=== PATIENT | female | born 1985 | race Caucasian/White ===

== ENCOUNTER 2017-03-17 00:20 | Observation (INO) | payer SELFPAY ==
[2017-03-17 00:20] VITALS: BMI 32.3
--- NOTE | 2017-03-17 00:41 | ED PDOC ---
Arrival/HPI - General Time Seen by Provider: 03/17/17 00:36 Historian: Patient - History of Present Illness Narrative History of Present Illness (Text): 03/17/17 00:41 Radhames Mcguire is a 31 year old female, whose past medical history includes chronic pain, anxiety, and left shoulder surgery, who presents to the Emergency department status post fall yesterday. Patient states she fell yesterday on to a nail and is now complaining of pain to her left upper arm/shoulder area. Patient also complaining of discomfort to left mandibular/periorbital area and headache. Patient is uncertain if she hit her face/head after falling. Patient appears extremely drowsy with slow mentation when questioned. Patient admits to taking Percocet earlier tonight for her chronic back pain. Patient denies loss of consciousness after she fell yesterday. Patient denies any chest pain, back pain, neck pain, dizziness, nausea, vomiting, or any other complaints. Symptom Onset: Gradual Symptom Course: Unchanged Activities at Onset: Light Context: Walking Past Medical History - Provider Review Nursing Documentation Reviewed: Yes - Infectious Disease Hx of Infectious Diseases: None - Cardiac Hx Pacemaker: No - Pulmonary Hx Emphysema: No - Neurological Hx Dementia: No - HEENT Hx HEENT Disorder: No Hx Blind: No Hx Cataracts: No Hx Deafness: No Hx Difficulty Chewing: No Hx Epistaxis: No Hx Glaucoma: No Hx Macular Degeneration: No - Renal Hx Renal Disorder: No - Endocrine/Metabolic Hx Hyperthyroidism: No Hx Hypothyroidism: No - Hematological/Oncological Hx Sickle Cell Disease: No - Integumentary Hx Dermatological Disorder: No Hx Basal Cell Carcinoma: No Hx Eczema: No Hx Melanoma: No Hx Psoriasis: No Hx Squamous Cell Carcinoma: No - Musculoskeletal/Rheumatological Hx Musculoskeletal Disorders: Yes Hx Back Pain: No Hx Degenerative Joint Disease: No Hx Falls: No Hx Gout: No Hx Herniated Disk: No Hx Myasthenia Gravis: No Hx Osteoarthritis: No Hx Osteomyelitis: No Hx Rhabdomyolysis: No Hx Spinal Stenosis: Yes Hx Unsteady Gait: No - Gastrointestinal Hx Diverticulitis: No - Genitourinary/Gynecological Hx Sexually Transmitted Diseases: No - Psychiatric Hx Substance Use: No - Surgical History Hx Appendectomy: No Hx Cholecystectomy: No Hx Coronary Stent: No - Anesthesia Hx Anesthesia: Yes Hx Anesthesia Reactions: No - Suicidal Assessment Feels Threatened In Home Enviroment: No Family/Social History - Physician Review Nursing Documentation Reviewed: Yes Family/Social History: Unknown Family HX Smoking Status: Never Smoked Hx Alcohol Use: No Hx Substance Use: No Allergies/Home Meds Allergies/Adverse Reactions: Allergies No Known Allergies Allergy (Verified 03/26/16 12:18) Home Medications: Home Meds Medication Instructions Recorded Confirmed Alprazolam [Xanax] 2 mg PO TID 07/04/15 07/04/15 oxyCODONE [oxyCODONE Immediate 15 mg PO TID 07/04/15 07/04/15 Release Tab] oxyCODONE [oxyCODONE Immediate 30 mg PO TID 07/04/15 07/04/15 Release Tab] Review of Systems - Physician Review All systems were reviewed & negative as marked: Yes - Review of Systems Constitutional: Normal Eyes: Normal ENT: Normal Respiratory: Normal. absent: SOB, Cough Cardiovascular: absent: Chest Pain Gastrointestinal: Normal. absent: Abdominal Pain, Diarrhea, Nausea, Vomiting Genitourinary Female: Normal Musculoskeletal: Arthralgias (+left shoulder pain), Other (+facial pain). absent: Back Pain, Neck Pain Skin: Other (+left upper arm wound) Neurological: Headache Endocrine: Normal Hemo/Lymphatic: Normal Psychiatric: Normal Physical Exam Vital Signs Reviewed: Yes Vital Signs Temp Pulse Resp BP Pulse Ox 03/17/17 00:58 97.7 F 89 18 149/64 98 Temperature: Afebrile Blood Pressure: Normal Pulse: Regular Respiratory Rate: Normal Appearance: Positive for: Comfortable Pain Distress: None Mental Status: Positive for: other (Awake, drowsy, oriented x3) - Systems Exam Head: Present: Normocephalic, Tenderness (Tenderness to left lower maxilla/ mandible, swelling to the area noted), Swelling (Right periorbital edema with erythema and palpable tenderness to the area, swelling to lower left periorbital area) Pupils: Present: PERRL Extroacular Muscles: Present: EOMI Conjunctiva: Present: Normal Mouth: Present: Moist Mucous Membranes Neck: Present: Normal Range of Motion Respiratory/Chest: Present: Clear to Auscultation, Good Air Exchange. No: Respiratory Distress, Accessory Muscle Use Cardiovascular: Present: Regular Rate and Rhythm, Normal S1, S2. No: Murmurs Abdomen: Present: Normal Bowel Sounds. No: Tenderness, Distention, Peritoneal Signs Upper Extremity: Present: NORMAL PULSES, Tenderness (Tenderness on palpation of left shoulder/distal left clavicle), Erythema (Open wound abrasion/avulsion to left upper arm with surrounding erythema and swelling, no discharge noted), Neurovascularly Intact, Capillary Refill < 2s. No: Cyanosis, Edema, Normal ROM (Discomfort with left shoulder raising), Temperature Abnormalties Lower Extremity: Present: Normal Inspection. No: Edema Neurological: Present: GCS=15, CN II-XII Intact Skin: Present: Warm, Dry, Normal Color. No: Rashes Psychiatric: Present: Oriented x 3, Normal Insight, Normal Concentration, Other (Awake, drowsy) Medical Decision Making ED Course and Treatment: 03/17/17 00:41 Impression: 31 year old female complaining of left upper arm/shoulder pain, facial pain, and headache. Plan: -- CT Head w/o contrast -- CT Maxillofacial w/o contrast -- XR Left Shoulder -- EKG -- Labs, cardiac enzymes, alcohol level -- Urine drug screen -- Tetanus vaccination -- Reassess and disposition Prior Visits: Notes and results from previous visits were reviewed. On 03/26/2016, pt was seen at [facility] emergency department for chronic left arm/shoulder pain. Pt was d/c home. Progress Notes: 03/17/17 01:26 [place] SIGNALING PROJECT ENGINEER reviewed, pt received 90 tablets of Oxycodone-Acetaminophen 10-325 on , 90 tablets Oxycodone 30mg on 02/02/17, and 30 tablets of Aprazolam on 10/13. 03/17/17 02:00 EKG: Ordered, reviewed, and independently interpreted the EKG. Rate: 83 BPM Rhythm: NSR Interpretation: No ST-segment elevations or depressions, no T-wave inversions, normal intervals. 03/17/17 02:32 Reviewed XR Left Shoulder, shows widened left acromioclavicular joint, unchanged from previous XR Left Shoulder on 11/2014. 03/17/17 03:05 Reviewed radiology, CT Head shows: - No evidence of acute intracranial injury or fractures. - See above for remaining findings. CT Maxillofacial shows: - No acute facial bones fractures identified. - Incidental multiple periodontal abscesses. 03/17/17 03:09 Case discussed with family practice medical doctor optimization analyst, who is aware and agrees with plan. Case discussed with Dr. Nayak, who is aware and agrees with plan. Accepts pt in to hospitalist service. Pt will go to [facility] observation for rhabdomyolysis, cellulitis, and head/facial contusion. - Lab Interpretations Lab Results: 03/17/17 01:05 03/17/17 01:05 Lab Results 03/17/17 01:30: Urine Opiates Screen Pending, Urine Methadone Screen Pending, Ur Barbiturates Screen Pending, Ur Phencyclidine Scrn Pending, Ur Amphetamines Screen 171.4, U Benzodiazepines Scrn Pending, U Oth Cocaine Metabols Pending, U Cannabinoids Screen 45.42 03/17/17 01:05: Alcohol, Quantitative < 10 03/17/17 01:05: WBC 9.4 D, RBC 3.52, Hgb 10.5 L, Hct 33.0 L, MCV 93.8, MCH 29.8 , MCHC 31.8, RDW 14.1, Plt Count 299, MPV 10.0 03/17/17 01:05: Sodium 141, Potassium 4.0, Chloride 107, Carbon Dioxide 26, Anion Gap 12, BUN 17, Creatinine 0.8, Est GFR ( Amer) > 60, Est GFR (Non- Af Amer) > 60, Random Glucose 100, Calcium 8.7, Total Bilirubin 0.5, AST 42 H, ALT 46, Alkaline Phosphatase 64, Lactate Dehydrogenase 582, Total Creatine Kinase 1225 H, CK-MB (CK-2) 1.0, CK-MB (CK-2) % Cancelled, Troponin I < 0.01, Total Protein 6.6, Albumin 3.5, Globulin 3.1, Albumin/Globulin Ratio 1.1 03/17/17 01:05: PT 10.4, INR 0.96, APTT 37.0 H I have reviewed the lab results: Yes - RAD Interpretation Narrative RAD Interpretations (Text): CT Head shows: BRAIN: Tiny calcifications in the right basal ganglia, stable in appearance. No significant acute abnormality identified. No acute hemorrhage seen within the brain. No acute extra-axial fluid collections visualized. No evidence of significant mass effect within the brain. Normal causey-white matter differentiation. VENTRICLES: Ventricles are stable in size, with no evidence of new hydrocephalus. BONES/JOINTS: No acute skull or skull base fractures visualized. SOFT TISSUES: Diffuse tissue swelling in the anterior and lateral scalp. MASTOID AIR CELLS: Mastoid air cells appear clear. OTHER FINDINGS: Findings in the paranasal sinuses, orbits and facial soft tissues are described in the separate dedicated facial bone CT report. IMPRESSION: - No evidence of acute intracranial injury or fractures. - See above for remaining findings. CT Maxillofacial shows: BONES/JOINTS: No acute fractures seen. No evidence of acute dislocation. SOFT TISSUES: Diffuse, bilateral facial soft tissue swelling, greatest in the right periorbital and left pre-maxillary regions. ORBITS: Intraorbital soft tissues appear grossly intact. No evidence of significant orbital emphysema. SINUSES: Fluid in the left sphenoid sinus, compatible with acute sinusitis. Sinus marte appear intact. There is also complete opacification of the bilateral maxillary sinuses, compatible with marked sinus inflammatory disease. Remaining visualized paranasal sinuses appear clear. DENTAL: Lucencies are seen surrounding the roots of multiple, bilateral lower teeth, as well as a single left upper tooth, highly suspicious for multiple periodontal abscesses. IMPRESSION: - No acute facial bones fractures identified. - Incidental multiple periodontal abscesses. Radiology Orders: 03/17/17 00:48 HEAD W/O CONTRAST [CT] Stat 03/17/17 00:52 MAXILLOFACIAL W/O CONTRAST [CT] Stat 03/17/17 01:03 SHOULDER LEFT [RAD] Stat Assembler Erector: ED Physician, Radiologist - EKG Interpretation Interpreted by ED Physician: Yes Type: 12 lead EKG Comparison: No previous EKG avail. - Medication Orders Current Medication Orders: Sodium Chloride (Sodium Chloride 0.9%) 1,000 mls @ 999 mls/hr IV .Q1H1M STA Stop: 03/17/17 03:58 Last Admin: 03/17/17 03:25 Dose: 999 mls/hr eMAR Start Stop Document 03/17/17 03:25 RE (Rec: 03/17/17 03:25 [id number] Intravenous Solution Start Date 03/17/17 Start Time 03:25 Ampicillin Sodium/Sulbactam (Sodium 1.5 gm/ Sodium Chloride) 100 mls @ 100 mls/ hr IVPB ONCE ONE Stop: 03/17/17 04:14 Last Admin: 03/17/17 03:26 Dose: 100 mls/hr eMAR Start Stop Document 03/17/17 03:26 RE (Rec: 03/17/17 03:26 [id number][facility] Intravenous Solution Start Date 03/17/17 Start Time 03:26 Discontinued Medications Sodium Chloride (Sodium Chloride 0.9%) 1,000 mls @ 999 mls/hr IV .Q1H1M STA Stop: 03/17/17 02:00 Last Admin: 03/17/17 03:24 Dose: 999 mls/hr eMAR Start Stop Document 03/17/17 03:24 RE (Rec: 03/17/17 03:25 RE [id number] Intravenous Solution Start Date 03/17/17 Start Time 01:00 Ketorolac Tromethamine (Toradol) 30 mg IVP ONCE ONE Stop: 03/17/17 02:57 Last Admin: 03/17/17 03:23 Dose: 30 mg MAR Pain Assessment Document 03/17/17 03:23 RE (Rec: 03/17/17 03:24 RE [id number][facility] Pain Reassessment Is this a pain reassessment? No Sleep Is patient sleeping during reassessment? No Presence of Pain Presence of Pain Yes Pain Scale Used Pain Scale Used Numeric Location Left, Right or Bilateral Left Upper or Lower Upper Pain Location Body Site Hand Description Description Constant Intensity of Pain at present 10 Acceptable Level of Pain 2 IVP Administration Document 03/17/17 03:23 RE (Rec: 03/17/17 03:24 RE [id number] Charges for Administration # of IVP Administrations 1 Tetanus/Reduced Diphtheria/Acell Pertussis (Boostrix Vaccine Inj) 0.5 ml IM .ONCE ONE Stop: 03/17/17 01:04 Last Admin: 03/17/17 01:31 Dose: 0.5 ml MAR Immunization Data Document 03/17/17 01:31 RE (Rec: 03/17/17 01:31 RE [id number][facility] Immunization Data Vaccine Information Sheet Given No Immunization Registry Document 03/17/17 01:31 RE (Rec: 03/17/17 01:31 RE [id number][facility] Immunization Registry Consent Date 03/17/17 - Scribe Statement The provider has reviewed the documentation as recorded by the Scribheather Hong Provider Scribe Attestation: All medical record entries made by the Scribe were at my direction and personally dictated by me. I have reviewed the chart and agree that the record accurately reflects my personal performance of the history, physical exam, medical decision making, and the department course for this patient. I have also personally directed, reviewed, and agree with the discharge instructions and disposition. Disposition/Present on Arrival - Present on Arrival Any Indicators Present on Arrival: No History of DVT/PE: No History of Uncontrolled Diabetes: No Urinary Catheter: No History of Decub. Ulcer: No History Surgical Site Infection Following: None - Disposition Have Diagnosis and Disposition been Completed?: Yes Diagnosis: Shoulder pain, Rhabdomyolysis, Cellulitis, Facial injury Disposition: HOSPITALIZED Disposition Time: 03:18 Patient Problems: Current Active Problems Problem Status Onset Cellulitis Acute Facial injury Acute Rhabdomyolysis Acute Shoulder pain Acute Condition: STABLE Discharge Instructions (ExitCare): Cellulitis (ED)
[2017-03-17] MEDS ORDERED: Sodium Chloride 0.9% 1,000 ML IV STA ×2 (01:00→02:58)
[2017-03-17] MEDS ORDERED: TDAP Vaccine 0.5 mL Syr IM ONE (01:03)
[2017-03-17 01:29] LABS: MEAN CELL VOLUME 93.8 fl (80.0-105.0); MEAN CORPUSCULAR HEMOGLOBIN 29.8 pg (25.0-35.0); MEAN CORPUSCULAR HGB CONC 31.8 g/dl (31.0-37.0); RED CELL DISTRIBUTION WIDTH 14.1 % (11.5-14.5); WHITE BLOOD COUNT 9.4 10^3/ul (4.5-11.0)
[2017-03-17 01:38] LABS: INR 0.96 (0.93-1.08)
[2017-03-17 02:00] LABS: TROPONIN I < 0.01 ng/mL
[2017-03-17 02:03] LABS: ALB/GLOB RATIO 1.1 (1.1-1.8); ALKALINE PHOSPHATASE 64 U/L (38-126); ALT/SGPT 46 U/L (7-56); AST/SGOT 42 U/L (14-36); BILIRUBIN,TOTAL 0.5 mg/dL (0.2-1.3); BLOOD UREA NITROGEN 17 mg/dL (7-21); CALCIUM 8.7 mg/dL (8.4-10.5); CARBON DIOXIDE 26 mmol/L (21-33); CHLORIDE 107 mmol/L (98-107); GFR AFRICAN-AMERICAN > 60; GLUCOSE,RANDOM 100 mg/dL (70-110); SODIUM 141 mmol/L (132-148); TOTAL PROTEIN 6.6 g/dL (5.8-8.3)
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
[2017-03-17] MEDS ORDERED: AMPicillin/Sulbactam 1.5gm 1 GM/100 ML BAG IVPB ONE (03:01)
[2017-03-17] MEDS ORDERED: AMPICILLIN IVPB ONE (03:10)
[2017-03-17] MEDS ORDERED: SULBACTAM IVPB ONE (03:10)
--- NOTE | 2017-03-17 03:44 | CP.PCM.HP ---
<Dyan Casas - Last Filed: 03/17/17 04:34> History of Present Illness - History of Present Illness History of Present Illness: CC: "I fell" HPI: Patient is a 31 year old female with past medical history of spinal stenosis, chronic neck/back pain, anxiety presents to the ED s/p fall. During the interview, Patient initially did not want to answer questions. She stated that she felt tired and weak. Upon further questioning, she stated that her brought her to the ED. Patient states that she was home when she slipped and fell to the floor yesterday morning. She stated that she hit the back of her head and her left arm landed on a nail but did not lose consciousness. Patient states that she had multiple falls throughout the day at home and she doesn't know why she is falling so much. Reports that she feels a gush of blood running through her head when she bends down forward. This has never happened to her before. 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 At this time she admits to headache, dizziness, neck pain and weakness. She cannot see out of her right eye. Denies fevers, chills, nausea/vomiting, changes in hearing, chest pain, sob, abdominal pain, urinary symptoms, changes in bowel habits. Allergies: NKDA Medications: Percocet, xanax Medical Hx: Anxiety, Spinal stenosis, chronic neck/back pain Surgical Hx: Epidural for spinal stenosis, suction D+C Social Hx: Denies alcohol, tobacco, drug use; lives with mother, daughter and ; works as a nurse Family Hx: Denies Present on Admission - Present on Admission Any Indicators Present on Admission: No Review of Systems - Constitutional Constitutional: Headache. absent: Chills, Fever - EENT Eyes: Change in Vision Ears: Dizziness - Cardiovascular Cardiovascular: absent: Chest Pain, Dyspnea, Palpitations - Respiratory Respiratory: absent: Cough, Dyspnea, Wheezing - Gastrointestinal Gastrointestinal: absent: Abdominal Pain, Constipation, Cramping, Diarrhea, Nausea, Vomiting - Musculoskeletal Musculoskeletal: Neck Pain Additional comments: L shoulder and arm pain - Neurological Neurological: Dizziness, Frequent Falls, Headaches. absent: Confusion, Numbness , Tingling Past Patient History - Infectious Disease Hx of Infectious Diseases: None - Past Social History Smoking Status: Never Smoked - CARDIAC Hx Pacemaker: No - PULMONARY Hx Emphysema: No - NEUROLOGICAL Hx Dementia: No - HEENT Hx HEENT Problems: No Hx Blind: No Hx Cataracts: No Hx Deafness: No Hx Difficulty Chewing: No Hx Epistaxis: No Hx Glaucoma: No Hx Macular Degeneration: No - RENAL Hx Chronic Kidney Disease: No - ENDOCRINE/METABOLIC Hx Hyperthyroidism: No Hx Hypothyroidism: No - HEMATOLOGICAL/ONCOLOGICAL Hx Sickle Cell Disease: No - INTEGUMENTARY Hx Dermatological Problems: No Hx Basil Cell: No Hx Eczema: No Hx Melanoma: No Hx Psoriasis: No Hx Squamous Cell: No - MUSCULOSKELETAL/RHEUMATOLOGICAL Hx Musculoskeletal Disorders: Yes Hx Back Pain: No Hx Degenerative Joint Disease: No Hx Falls: No Hx Gout: No Hx Herniated Disk: No Hx Myasthenia Gravis: No Hx Osteoarthritis: No Hx Osteomyelitis: No Hx Rhabdomyolysis: No Hx Spinal Stenosis: Yes Hx Unsteady Gait: No - GASTROINTESTINAL Hx Diverticulitis: No - GENITOURINARY/GYNECOLOGICAL Hx Sexually Transmitted Disorders: No - PSYCHIATRIC Hx Substance Use: No - SURGICAL HISTORY Hx Appendectomy: No Hx Cholecystectomy: No Hx Coronary Stent: No - ANESTHESIA Hx Anesthesia: Yes Hx Anesthesia Reactions: No Meds Allergies/Adverse Reactions: Allergies Allergy/AdvReac Type Severity Reaction Status Date / Time No Known Allergies Allergy Verified 03/26/16 12:18 Physical Exam - Constitutional Appears: Non-toxic, Unkempt, Older Than Stated Age - Head Exam Head Exam: ATRAUMATIC, NORMAL INSPECTION - Eye Exam Eye Exam: Periorbital swelling, Periorbital tenderness Additional comments: Significant R perioribital swelling, patient unable to open her right eye L perioribital swelling also appreciated Bruising noted on R side of her forehead - ENT Exam ENT Exam: Mucous Membranes Moist - Neck Exam Neck exam: Positive for: Full Rom, Tenderness - Respiratory Exam Respiratory Exam: Clear to Auscultation Bilateral, NORMAL BREATHING PATTERN. absent: Rales, Rhonchi, Wheezes - Cardiovascular Exam Cardiovascular Exam: REGULAR RHYTHM, +S1, +S2 - GI/Abdominal Exam GI & Abdominal Exam: Normal Bowel Sounds, Soft. absent: Guarding, Rebound, Rigid, Tenderness - Extremities Exam Extremities exam: Positive for: pedal pulses present. Negative for: calf tenderness Additional comments: Open wound abrasion/avulsion to left upper arm with surrounding erythema and swelling Bruise noted on medial aspect of right thigh - Back Exam Back exam: NORMAL INSPECTION - Neurological Exam Neurological exam: Alert, Oriented x3 - Psychiatric Exam Psychiatric exam: Flat Affect Results - Vital Signs Recent Vital Signs: Last Vital Signs Temp 97.7 F 03/17/17 00:58 Pulse 89 03/17/17 00:58 Resp 18 03/17/17 00:58 BP 149/64 03/17/17 00:58 Pulse Ox 98 03/17/17 00:58 - Labs Result Diagrams: 03/17/17 01:05 03/17/17 01:05 Labs: Laboratory Results - last 24 hr 03/17/17 03/17/17 03/17/17 01:05 01:05 01:05 WBC 9.4 D RBC 3.52 Hgb 10.5 L Hct 33.0 L MCV 93.8 MCH 29.8 MCHC 31.8 RDW 14.1 Plt Count 299 MPV 10.0 PT 10.4 INR 0.96 APTT 37.0 H Sodium 141 Potassium 4.0 Chloride 107 Carbon Dioxide 26 Anion Gap 12 BUN 17 Creatinine 0.8 Est GFR ( Amer) > 60 Est GFR (Non-Af Amer) > 60 Random Glucose 100 Calcium 8.7 Total Bilirubin 0.5 AST 42 H ALT 46 Alkaline Phosphatase 64 Lactate Dehydrogenase 582 Total Creatine Kinase 1225 H CK-MB (CK-2) 1.0 CK-MB (CK-2) % Cancelled Troponin I < 0.01 Total Protein 6.6 Albumin 3.5 Globulin 3.1 Albumin/Globulin Ratio 1.1 Ur Amphetamines Screen U Cannabinoids Screen Alcohol, Quantitative 03/17/17 03/17/17 01:05 01:30 WBC RBC Hgb Hct MCV MCH MCHC RDW Plt Count MPV PT INR APTT Sodium Potassium Chloride Carbon Dioxide Anion Gap BUN Creatinine Est GFR ( Amer) Est GFR (Non-Af Amer) Random Glucose Calcium Total Bilirubin AST ALT Alkaline Phosphatase Lactate Dehydrogenase Total Creatine Kinase CK-MB (CK-2) CK-MB (CK-2) % Troponin I Total Protein Albumin Globulin Albumin/Globulin Ratio Ur Amphetamines Screen 171.4 U Cannabinoids Screen 45.42 Alcohol, Quantitative < 10 Assessment & Plan - Assessment and Plan (Free Text) Assessment: Patient is a 31 year old female with past medical history of spinal stenosis, chronic back/neck pain, anxiety present to the ED s/p mechanical fall. Plan: 1. Rhabdomyolysis 2/2 trauma -Stable, afebrile -Place on observation -CPK on admission 1225 -Fluids: LR @ 200cc/hr -F/U am labs, trend CPK levels -F/U Urine drug screen 2. S/P mechanical fall with Multiple contussions -EKG showed NSR at 83 bpm -CT head showed no acute intracranial pathology -CT maxillofacial showed no acute fractures, incidental multiple periodontal abscesses, sinus inflammatory disease -Shoulder X ray read pending -Pain control: Morphine 1mg Q4H prn moderate pain, Morphine 2mg Q4H prn severe pain -Orthostatics ordered -Fall precautions 3. History of Anxiety -Holding Xanax at this time GI/DVT ppx -Protonix 40mg daily -SCDs Plan d/w attending, Dr Nayak <Heath Nayak - Last Filed: 03/17/17 06:33> Results - Vital Signs Recent Vital Signs: Last Vital Signs Temp 98.3 F 03/17/17 04:34 Pulse 74 03/17/17 04:34 Resp 18 03/17/17 04:34 BP 113/69 03/17/17 04:34 Pulse Ox 98 03/17/17 03:30 - Labs Result Diagrams: 03/17/17 01:05 03/17/17 01:05 Attending/Attestation - Attestation I have personally seen and examined this patient.: Yes I have fully participated in the care of the patient.: Yes I have reviewed all pertinent clinical information: Yes Notes (Text): 03/17/17 06:32 Patient was seen when she was in the ER in bed # 3. Agree with history , physical examination, assessment and plan.
[2017-03-17] MEDS ORDERED: Morphine 4 mg/ml ISec IVP PRN ×2 (03:46→07:39)
[2017-03-17] MEDS ORDERED: Morphine 2 mg/ml ISec IVP PRN (03:47)
[2017-03-17] MEDS ORDERED: Sodium Chloride 0.9% 1,000 ML IV SCH (04:00)
[2017-03-17 04:42] VITALS: BP 113/69; TEMP 98.3
[2017-03-17] MEDS: Lactated Ringer's 1,000 ML IV SCH ×2 (04:52→10:52)
[2017-03-17] MEDS ORDERED: Oxycodone/Acetaminophen 10/325 mg Tab PO STA (05:27)
[2017-03-17] MEDS ORDERED: Pantoprazole 40 mg EC Tab PO SCH (06:00)
[2017-03-17] MEDS ORDERED: Morphine 5 MG/ML SYRINGE IVP PRN (07:40)
[2017-03-17] MEDS ORDERED: Tetanus Immune Globulin 250 Units Inj IM ONE (09:12)
[2017-03-17] MEDS ORDERED: oxyCODONE 15 mg Immediate Release Tab PO SCH (10:00)
[2017-03-17 10:10] LABS: EOS # 0.2 (0.0-0.7); EOS % 3.7 % (1.5-5.0); GRAN # 3.58 (1.4-6.5); GRAN % 55.7 % (50.0-68.0); LYMPH # 2.2 (1.2-3.4); LYMPH % 34.2 % (22.0-35.0); MEAN CELL VOLUME 95.4 fl (80.0-105.0); MEAN CORPUSCULAR HEMOGLOBIN 30.2 pg (25.0-35.0); MEAN CORPUSCULAR HGB CONC 31.7 g/dl (31.0-37.0); MEAN PLATELET VOLUME 10.4 fl (7.0-11.0); MONO # 0.4 (0.1-0.6); MONO % 6.4 % (1.0-6.0); RED CELL DISTRIBUTION WIDTH 14.3 % (11.5-14.5); WHITE BLOOD COUNT 6.4 10^3/ul (4.5-11.0)
[2017-03-17 10:14] LABS: ALB/GLOB RATIO 1.2 (1.1-1.8); ALKALINE PHOSPHATASE 66 U/L (38-126); ALT/SGPT 49 U/L (7-56); AST/SGOT 39 U/L (14-36); BILIRUBIN,TOTAL 0.6 mg/dL (0.2-1.3); BLOOD UREA NITROGEN 17 mg/dL (7-21); CALCIUM 8.5 mg/dL (8.4-10.5); CARBON DIOXIDE 25 mmol/L (21-33); CHLORIDE 108 mmol/L (98-107); GFR AFRICAN-AMERICAN > 60; GLUCOSE,RANDOM 97 mg/dL (70-110); PHOSPHOROUS 4.1 mg/dL (2.5-4.5); POTASSIUM 4.3 mmol/L (3.6-5.0); SODIUM 140 mmol/L (132-148); TOTAL PROTEIN 6.5 g/dL (5.8-8.3)
--- NOTE | 2017-03-17 11:53 | RAD ---
PROCEDURE: Bilateral Knee Radiographs. HISTORY: trauma COMPARISON: None. FINDINGS: BONES: Right Knee: Normal. No fracture. Left Knee: Normal. No fracture. JOINTS: Right Knee: Unremarkable. Left knee: Very early medial osteoarthritis. Lateral and patellofemoral compartments are preserved. No articular erosion. SOFT TISSUES: Right Knee: Normal. Left Knee: Normal. JOINT EFFUSION: Right Knee: None. Left Knee: None. OTHER FINDINGS: None. IMPRESSION: Very early left medial osteoarthritis. No acute fracture.
--- NOTE | 2017-03-17 12:17 | RAD ---
PROCEDURE: Radiographs of the Left Shoulder HISTORY: injury COMPARISON: No prior. FINDINGS: BONES: There is no acute fracture. There is marked increase in the left cortical clavicular distance likely indicating coracoclavicular ligamentous disruption, of indeterminate age. Recommend AP chest radiograph for comparison to the opposite side. There is an ovoid radiopacity situated beneath the level of the clavicle but not fixed at the level of the clavicular. This is of uncertain significance. The possibility of an old fracture fragment may be considered. JOINTS: Glenohumeral articulation unremarkable. Markedly widened acromioclavicular articulation as above. SOFT TISSUES: Normal. OTHER FINDINGS: None. IMPRESSION: Increased coracoclavicular distance consistent with cortical clavicular/deltoid ligamentous injury of indeterminate age. No acute fracture.
--- NOTE | 2017-03-17 12:52 | US ---
PROCEDURE: Ultrasound soft tissue left upper extremity HISTORY: nail puncture left arm COMPARISON: Not available TECHNIQUE: Targeted ultrasound examination at the site of puncture wound FINDINGS: In the lateral aspect of the left antecubital fossa, at the site of focal puncture wound, there is an ill-defined collection of fluid measuring 0.6 x 0.7 x 1.3 cm. This may represent a hematoma/ seroma. This is not seen abutting any blood vessel. IMPRESSION: Ill-defined 1.2 cm fluid collection lateral aspect left antecubital fossa at site of puncture wound.
[2017-03-17 14:36] VITALS: PULSE 75; RESP 20; O2SAT 100
--- NOTE | 2017-03-17 14:54 | CARD ---
APPROVED REPORT EKG Measurement Heart [id number] <Conclusion> Normal sinus rhythm Minimal voltage criteria for LVH, may be normal variant Borderline ECG
--- NOTE | 2017-03-17 15:20 | CP.PCM.DIS ---
Provider - Provider Date of Admission: 03/17/17 03:49 Attending physician: Delmy Giang MD Primary care physician: None Consults: Neurology: Dr. Zuleta Time Spent in preparation of Discharge (in minutes): 35 Hospital Course - Lab Results Lab Results: Most Recent Lab Values WBC 6.4 10^3/ul (4.5-11.0) D 03/17/17 10:00 RBC 3.67 10^6/uL (3.5-6.1) 03/17/17 10:00 Hgb 11.1 g/dL (12.0-16.0) L 03/17/17 10:00 Hct 35.0 % (36.0-48.0) L 03/17/17 10:00 MCV 95.4 fl (80.0-105.0) 03/17/17 10:00 MCH 30.2 pg (25.0-35.0) 03/17/17 10:00 MCHC 31.7 g/dl (31.0-37.0) 03/17/17 10:00 RDW 14.3 % (11.5-14.5) 03/17/17 10:00 Plt Count 266 10^3/uL (120.0-450.0) 03/17/17 10:00 MPV 10.4 fl (7.0-11.0) 03/17/17 10:00 Gran % 55.7 % (50.0-68.0) 03/17/17 10:00 Lymph % (Auto) 34.2 % (22.0-35.0) 03/17/17 10:00 [place] % (Auto) 6.4 % (1.0-6.0) H 03/17/17 10:00 Eos % (Auto) 3.7 % (1.5-5.0) 03/17/17 10:00 Baso % (Auto) 0.0 % (0.0-3.0) 03/17/17 10:00 Gran # 3.58 (1.4-6.5) 03/17/17 10:00 Lymph # 2.2 (1.2-3.4) 03/17/17 10:00 [place] # 0.4 (0.1-0.6) 03/17/17 10:00 Eos # 0.2 (0.0-0.7) 03/17/17 10:00 Baso # 0.00 K/mm3 (0.0-2.0) 03/17/17 10:00 PT 10.4 SECONDS (9.4-12.5) 03/17/17 01:05 INR 0.96 (0.93-1.08) 03/17/17 01:05 APTT 37.0 Seconds (25.1-36.5) H 03/17/17 01:05 Sodium 140 mmol/L (132-148) 03/17/17 09:03 Potassium 4.3 mmol/L (3.6-5.0) 03/17/17 09:03 Chloride 108 mmol/L (98-107) H 03/17/17 09:03 Carbon Dioxide 25 mmol/L (21-33) 03/17/17 09:03 Anion Gap 11 (10-20) 03/17/17 09:03 BUN 17 mg/dL (7-21) 03/17/17 09:03 Creatinine 0.8 mg/dl (0.7-1.2) 03/17/17 09:03 Est GFR ( Amer) > 60 03/17/17 09:03 Est GFR (Non-Af Amer) > 60 03/17/17 09:03 Random Glucose 97 mg/dL (70-110) 03/17/17 09:03 Calcium 8.5 mg/dL (8.4-10.5) 03/17/17 09:03 Phosphorus 4.1 mg/dL (2.5-4.5) 03/17/17 09:03 Magnesium 2.0 mg/dL (1.7-2.2) 03/17/17 09:03 Total Bilirubin 0.6 mg/dL (0.2-1.3) 03/17/17 09:03 AST 39 U/L (14-36) H 03/17/17 09:03 ALT 49 U/L (7-56) 03/17/17 09:03 Alkaline Phosphatase 66 U/L (38-126) 03/17/17 09:03 Lactate Dehydrogenase 582 U/L (333-699) 03/17/17 01:05 Total Creatine Kinase 1287 U/L (35-230) H 03/17/17 09:03 CK-MB (CK-2) 1.0 ng/mL (0.0-3.6) 03/17/17 09:03 CK-MB (CK-2) % Cancelled 03/17/17 01:05 Troponin I < 0.01 ng/mL 03/17/17 01:05 Total Protein 6.5 g/dL (5.8-8.3) 03/17/17 09:03 Albumin 3.5 g/dL (3.0-4.8) 03/17/17 09:03 Globulin 3.0 gm/dL 03/17/17 09:03 Albumin/Globulin Ratio 1.2 (1.1-1.8) 03/17/17 09:03 Urine Opiates Screen Positive (NEGATIVE) H 03/17/17 01:30 Urine Methadone Screen Negative (NEGATIVE) 03/17/17 01:30 Ur Barbiturates Screen Negative (NEGATIVE) 03/17/17 01:30 Ur Phencyclidine Scrn Negative (NEGATIVE) 03/17/17 01:30 Ur Amphetamines Screen Negative (NEGATIVE) 03/17/17 01:30 U Benzodiazepines Scrn Positive (NEGATIVE) H 03/17/17 01:30 U Oth Cocaine Metabols Negative (NEGATIVE) 03/17/17 01:30 U Cannabinoids Screen Negative (NEGATIVE) 03/17/17 01:30 Alcohol, Quantitative < 10 mg/dL (0-10) 03/17/17 01:05 - Hospital Course Hospital Course: US Upper Left Arm: Ill defined 1.2 cm fluid collection lateral aspect left antecubiral fossa at site of puncture wound CT Maxiofacial: No acute facial bone fractures, incidential multiple periodontal abscesses, sinus inflammatory disease, including sphenoid sinusitis CT Head w/o contrast: No evidence of acute intracranial injury or fracture, diffuse tissue swelling in the anterior and lateral scalp Knee Xray: Right knee unremarkable, Left Knee showing very early medial osteoarthritis no evidence of fracture - Date & Time of H&P Date of H&P: 03/17/17 Time of H&P: 03:42 Discharge Exam - Head Exam Head Exam: ATRAUMATIC, NORMAL INSPECTION Discharge Plan - Follow Up Plan Condition: STABLE Disposition: AGAINST MEDICAL ADVICE
== END 2017-03-17 14:03 | disposition left against medical advice (07) ==
LOC: ED 00:20 → ERH 03:49 → 3RNO 04:16
PROVIDERS: ADMIT Internal Medicine; ATTEND Internal Medicine
DX: M62.82 Rhabdomyolysis (principal); G89.29 Other chronic pain; F41.9 Anxiety disorder, unspecified; W01.0XXA Fall on same level from slipping, tripping and stumbling without subsequent striking against object, initial encounter; M54.2 Cervicalgia; M48.00 Spinal stenosis, site unspecified; R29.6 Repeated falls; R53.1 Weakness; R51 Headache; R42 Dizziness and giddiness; M54.9 Dorsalgia, unspecified; Y92.009 Unspecified place in unspecified non-institutional (private) residence as the place of occurrence of the external cause
CPT/HCPCS: 70450; 70486; 73030; 73562; 76881; 80053; 82550; 82553; 83615; 83735; 84100; 84484; 85025; 85027; 85610; 85730; 87040; 90471; 90715; 93005; 96365; 96375; 96376; 99285; G0378; G0480; J0295; J1670; J1885; J2270; J7040; J7120

== ENCOUNTER 2018-01-27 11:40 | Emergency (ER) | payer MEDICAID ==
[2018-01-27 12:20] VITALS: RESP 18; BMI 41.3
--- NOTE | 2018-01-27 12:26 | ED PDOC ---
Arrival/HPI - General Time Seen by Provider: 01/27/18 12:04 Historian: Patient - History of Present Illness Narrative History of Present Illness (Text): 01/27/18 12:20 32 year old obese female, whose past medical history includes anxiety, back problems (chronic), fibromyalgia, fractures (left shoulder), and chronic Pain, who presents to the emergency department complaining of aching pain in entire right lower extremities (right hip, knee and ankle) after falling down several stairs prior to arrival. Patient notes chronic back pain, unchanged from baseline. Patient is on chronic narcotics for her chronic pain. Patient denies loss of consciousness, head trauma, chest pain, abdominal pain, any other extremity trauma, or any other complaints. Patient states never being a smoker, drinker and denies drugs. Patient's pain out of proportion to her exam. 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 Patient has chronic pain. She states she has chronic difficulty walking on that leg. She presents from home with her using her own crutches. Her pain appears to be out of proportion to her examination. No neck pain. Chronic back pain. No head trauma. No chest pain or abdominal pain. No other extremity trauma. Past Medical History - Provider Review Nursing Documentation Reviewed: Yes - Infectious Disease Hx of Infectious Diseases: None - Cardiac Hx Pacemaker: No - Pulmonary Hx Emphysema: No Hx Sleep Apnea: No - Neurological Hx Dementia: No Hx Seizures: No Hx Transient Ischemic Attacks (TIA): No - HEENT Hx HEENT Disorder: No Hx Blind: No Hx Cataracts: No Hx Deafness: No Hx Difficulty Chewing: No Hx Epistaxis: No Hx Glaucoma: No Hx Macular Degeneration: No - Renal Hx Renal Disorder: No - Endocrine/Metabolic Hx Hyperthyroidism: No Hx Hypothyroidism: No - Hematological/Oncological Hx Sickle Cell Disease: No - Integumentary Hx Dermatological Disorder: No Hx Basal Cell Carcinoma: No Hx Eczema: No Hx Melanoma: No Hx Psoriasis: No Hx Squamous Cell Carcinoma: No - Musculoskeletal/Rheumatological Hx Fractures: Yes (left shoulder) - Gastrointestinal Hx Crohn's Disease: No Hx Diverticulitis: No Hx Gall Bladder Disease: No Hx Gastrointestinal Ulcer: No Hx Pancreatitis: No - Genitourinary/Gynecological Hx Sexually Transmitted Diseases: No - Psychiatric Hx Anxiety: Yes Hx Substance Use: No - Surgical History Hx Appendectomy: No Hx Cholecystectomy: No Hx Coronary Stent: No - Anesthesia Hx Anesthesia: Yes Hx Anesthesia Reactions: No - Suicidal Assessment Feels Threatened In Home Enviroment: No Family/Social History - Physician Review Nursing Documentation Reviewed: Yes Family/Social History: No Known Family HX Smoking Status: Never Smoked Hx Alcohol Use: No Hx Substance Use: No Allergies/Home Meds Allergies/Adverse Reactions: Allergies No Known Allergies Allergy (Verified 01/27/18 13:59) Home Medications: Home Meds Medication Instructions Recorded Confirmed Alprazolam [Xanax] 2 mg PO BID 07/04/15 08/12/17 oxyCODONE [oxyCODONE Immediate 30 mg PO TID 07/04/15 08/12/17 Release Tab] Review of Systems - Physician Review All systems were reviewed & negative as marked: Yes - Review of Systems Constitutional: Normal Respiratory: Normal Cardiovascular: Normal. absent: Chest Pain Gastrointestinal: Normal. absent: Abdominal Pain Musculoskeletal: Back Pain (patient notes chronic back pain, unchanged from baseline), Other (patient notes pain in right hip, right knee, and ankle status post falling down several stairs). absent: Normal Neurological: absent: Headache, Dizziness Physical Exam Vital Signs Reviewed: Yes Vital Signs Temp Pulse Resp BP Pulse Ox 01/27/18 12:14 98.1 F 63 18 148/95 H 100 Temperature: Afebrile Blood Pressure: Hypertensive (at 148/95) Pulse: Regular Respiratory Rate: Normal Appearance: Positive for: Well-Appearing, Non-Toxic, Uncomfortable, Other (obese) Mental Status: Positive for: Alert and Oriented X 3 - Systems Exam Head: Present: Atraumatic, Normocephalic Pupils: Present: PERRL Extroacular Muscles: Present: EOMI Conjunctiva: Present: Normal Mouth: Present: Moist Mucous Membranes Neck: Present: Normal Range of Motion. No: MIDLINE TENDERNESS, Paraspinal Tenderness Respiratory/Chest: Present: Clear to Auscultation, Good Air Exchange. No: Respiratory Distress, Accessory Muscle Use Cardiovascular: Present: Regular Rate and Rhythm, Normal S1, S2. No: Murmurs Abdomen: No: Tenderness, Distention, Peritoneal Signs, Rebound, Guarding Back: Present: Normal Inspection. No: Midline Tenderness, Paraspinal Tenderness Upper Extremity: Present: Normal Inspection. No: Cyanosis, Edema Lower Extremity: Present: Normal ROM, Tenderness (tenderness to right hip, right knee and right ankle, with no swelling and no skin changes), Neurovascularly Intact. No: Normal Inspection, CALF TENDERNESS, Swelling, Deformity Neurological: Present: GCS=15, CN II-XII Intact, Speech Normal, Motor Func Grossly Intact. No: Gait Normal (chronic difficulty ambulating) Skin: Present: Warm, Dry, Normal Color, Other (no skin changes). No: Rashes Psychiatric: Present: Alert, Oriented x 3, Normal Insight, Normal Concentration Medical Decision Making ED Course and Treatment: 01/27/18 12:20 Impression: 32 year old female presents to the ED complaining of pain in entire right lower extremities (right hip, knee and ankle) after falling down several stairs prior to arrival. Plan: -- POC Urine test -- X-Ray of right ankle, 3 views routine -- X-Ray of right femur, min 2 views RT -- X-Ray of right hip, min 2V w/ pelvis RT -- X-Ray of right knee, 2 views (AP & LAT) Prior visits: Prior visits reviewed. Patient was last seen in the ED on 08/12/17 with complaints of new onset leg swelling bilaterally the night prior to arrival. Patient was discharged home and directed to follow up with PMD within 1-2 days after and to return if worsened. Progress notes: - RAD Interpretation Narrative RAD Interpretations (Text): 01/27/18 14:16 X-ray right hip and pelvis and right femur right knee and right ankle show no fr acture or dislocation. Reel Slitter: ED Physician - Scribe Statement The provider has reviewed the documentation as recorded by the Scribe Heidi Tariq All medical record entries made by the Orenibheather were at my direction and personally dictated by me. I have reviewed the chart and agree that the record accurately reflects my personal performance of the history, physical exam, medical decision making, and the department course for this patient. I have also personally directed, reviewed, and agree with the discharge instructions and d isposition. Disposition/Present on Arrival - Present on Arrival Any Indicators Present on Arrival: No History of DVT/PE: No History of Uncontrolled Diabetes: No Urinary Catheter: No History of Decub. Ulcer: No History Surgical Site Infection Following: Orthopedic Procedures - Disposition Have Diagnosis and Disposition been Completed?: Yes Diagnosis: Pain management, Chronic pain disorder, Contusion, hip, Knee contusion, Ankle sprain Disposition: HOME/ ROUTINE Disposition Time: 14:17 Patient Plan: Discharge Condition: GOOD Discharge Instructions (ExitCare): Ankle Sprain, Contusion (DC), Hip Pointer (DC), Chronic Pain (DC), Foot Sprain (DC) Additional Instructions: Rest ice and elevation. Follow-up with PMD. Follow up in ER as needed. Prescriptions: oxyCODONE/Acetaminophen [Percocet 5/325 mg Tab] 1 ea PO Q6 #10 tab Forms: WORK NOTE
--- NOTE | 2018-01-27 14:30 | RAD ---
Date of service: 01/27/2018 PROCEDURE: Right Knee Radiographs. HISTORY: tr COMPARISON: None. FINDINGS: BONES: Normal. No fracture. JOINTS: Normal. No osteoarthritis. JOINT EFFUSION: None. OTHER FINDINGS: None. IMPRESSION: Normal radiographs of the right knee.
--- NOTE | 2018-01-27 14:32 | RAD ---
Date of service: 01/27/2018 PROCEDURE: Right Ankle Radiographs. HISTORY: tr COMPARISON: None FINDINGS: BONES: Normal. No fracture. JOINTS: Normal. No osteoarthritis. Ankle mortise maintained. Talar dome intact SOFT TISSUES: Normal. OTHER FINDINGS: None. IMPRESSION: Normal right ankle radiographs.
--- NOTE | 2018-01-27 14:33 | RAD ---
Date of service: 01/27/2018 PROCEDURE: Right Femur Radiographs. HISTORY: tra COMPARISON: None. TECHNIQUE: AP and Lateral Radiographs of the right femur. FINDINGS: FEMUR: The examination is read in conjunction with examination of the right hip and right knee for complete evaluation of the femur. No evidence of fracture. No lytic or blastic osseous lesion. SOFT TISSUES: Normal. OTHER FINDINGS: None. IMPRESSION: Unremarkable radiographs of the right femur.
--- NOTE | 2018-01-27 14:34 | RAD ---
PROCEDURE: Right Hip Radiographs. HISTORY: trauma COMPARISON: None. FINDINGS: BONES: Normal. No fracture. JOINTS: Normal. SOFT TISSUES: Normal. OTHER FINDINGS: None. IMPRESSION: Normal radiographs of right hip.
[2018-01-27 14:38] VITALS: BP 140/99; PULSE 66; TEMP 98.2; O2SAT 99
== END 2018-01-27 15:15 | disposition home or self-care (01) ==
LOC: ED 11:40
DX: S70.01XA Contusion of right hip, initial encounter (principal); S80.01XA Contusion of right knee, initial encounter; S93.401A Sprain of unspecified ligament of right ankle, initial encounter; W10.9XXA Fall (on) (from) unspecified stairs and steps, initial encounter; Y92.9 Unspecified place or not applicable; G89.4 Chronic pain syndrome
CPT/HCPCS: 73502; 73552; 73560; 73610; 96372; 99285; J1885

== ENCOUNTER 2018-01-30 14:32 | Emergency (ER) | payer MEDICAID ==
[2018-01-30 14:32] VITALS: BMI 41.3
[2018-01-30 15:02] VITALS: BP 153/93; PULSE 89; RESP 16; TEMP 98.7; O2SAT 97
[2018-01-30] MEDS ORDERED: Sodium Chloride 0.9% 1,000 ML IV STA (15:54)
[2018-01-30 16:40] LABS: URINE APPEARANCE SLIGHT-CLOUDY (CLEAR); URINE BILIRUBIN NEGATIVE (NEGATIVE); URINE BLOOD SMALL (NEGATIVE); URINE COLOR YELLOW (YELLOW); URINE GLUCOSE (UA) NEGATIVE (NEGATIVE); URINE LEUKOCYTE ESTERASE SMALL Leu/uL (NEGATIVE); URINE PROTEIN 30 mg/dL (<30 mg/dL)
[2018-01-30 16:46] LABS: URINE RBC 0 - 2 /hpf (0-2)
[2018-01-30 16:47] LABS: URINE BACTERIA FEW (NEG)
[2018-01-30 17:00] LABS: OPIATES, UR NEGATIVE (NEGATIVE)
[2018-01-30 17:03] LABS: BARBITURATES, UR NEGATIVE (NEGATIVE); BENZODIAZEPINES, UR POSITIVE (NEGATIVE); PHENCYCLIDINE, UR NEGATIVE (NEGATIVE)
--- NOTE | 2018-01-30 18:59 | CT ---
Date of service: 01/30/2018 PROCEDURE: CT HEAD WITHOUT CONTRAST. HISTORY: head injury, multiple syncopal episodes COMPARISON: None available. TECHNIQUE: Axial computed tomography images were obtained through the head/brain without intravenous contrast. Radiation dose: Total exam DLP = 899.46 mGy-cm. This CT exam was performed using one or more of the following dose reduction techniques: Automated exposure control, adjustment of the mA and/or kV according to patient size, and/or use of iterative reconstruction technique. FINDINGS: HEMORRHAGE: No intracranial hemorrhage. BRAIN: No mass effect or edema. No atrophy or chronic microvascular ischemic changes. VENTRICLES: Unremarkable. No hydrocephalus. CALVARIUM: Unremarkable. PARANASAL SINUSES: Chronic opacification of the bilateral maxillary sinuses identified. Acute left sphenoid sinusitis noted. MASTOID AIR CELLS: Unremarkable as visualized. No inflammatory changes. OTHER FINDINGS: None. IMPRESSION: Normal CT of the Head. Incidental acute left sphenoid sinusitis. Chronic complete opacification of bilateral maxillary sinuses noted as well.
--- NOTE | 2018-01-30 21:50 | ED PDOC ---
Addendum entered and electronically signed by Jany Bang PA 02/01/18 13:18: Addendum Addendum: 02/01/18 13:17 i called patient and again left message to call back regarding lab results. pt with + trichomonas on UA. will need treatment. This is 2nd attempt to contact patient. will send certified letter. Original Note: Arrival/HPI - General Chief Complaint: Upper Extremity Problem/Injury Time Seen by Provider: 01/30/18 15:09 Historian: Patient - History of Present Illness Narrative History of Present Illness (Text): 32-year-old female presents with multiple syncopal episodes in the past 2 days. Patient states she has passed out twice in the past 2 days. Patient states 3 days ago she had fallen down the stairs injuring her right leg. Patient states she's having severe continued pain in the right leg but states that she had x- rays and they were all negative. Patient is also complaining of left shoulder pain and left-sided chest pain. Patient is complaining of headaches. She denies back pain. Patient denies urinary symptoms. Patient denies abdominal pain. Patient is requesting medications for pain. Past Medical History - Provider Review Nursing Documentation Reviewed: Yes - Travel History Have you recently traveled outside [place] w/in the past 3 mons?: No - Infectious Disease Hx of Infectious Diseases: None - Tetanus Immunization Tetanus Immunization: Unknown - Cardiac Hx Cardiac Disorders: No - Pulmonary Hx Respiratory Disorders: No - Neurological Hx Neurological Disorder: No - HEENT Hx HEENT Disorder: No - Renal Hx Renal Disorder: No - Endocrine/Metabolic Hx Endocrine Disorders: No - Hematological/Oncological Hx Blood Disorders: Yes Hx Anemia: Yes Hx Sickle Cell Disease: No - Integumentary Hx Dermatological Disorder: Yes Hx Cellulitis: Yes - Musculoskeletal/Rheumatological Hx Musculoskeletal Disorders: Yes Hx Fractures: Yes (left shoulder) - Gastrointestinal Hx Crohn's Disease: No Hx Diverticulitis: No Hx Gall Bladder Disease: No Hx Gastrointestinal Ulcer: No Hx Pancreatitis: No - Genitourinary/Gynecological Hx Sexually Transmitted Diseases: No - Psychiatric Hx Psychophysiologic Disorder: Yes Hx Anxiety: Yes Hx Substance Use: No - Surgical History Hx Orthopedic Surgery: Yes (L SHOULDER) - Anesthesia Hx Anesthesia: Yes Hx Anesthesia Reactions: No - Suicidal Assessment Feels Threatened In Home Enviroment: No Family/Social History - Physician Review Nursing Documentation Reviewed: Yes Family/Social History: Unknown Family HX Smoking Status: Never Smoked Hx Alcohol Use: No Hx Substance Use: No Allergies/Home Meds Allergies/Adverse Reactions: Allergies No Known Allergies Allergy (Verified 01/30/18 14:56) Home Medications: Home Meds Medication Instructions Recorded Confirmed No Known Home Med 01/30/18 01/30/18 Review of Systems - Review of Systems Constitutional: absent: Fatigue, Fevers Respiratory: absent: SOB, Cough Cardiovascular: Chest Pain, Syncope. absent: Palpitations Gastrointestinal: absent: Abdominal Pain, Nausea, Vomiting Genitourinary Female: absent: Dysuria, Frequency, Hematuria, Vaginal Bleeding, Vaginal Discharge Musculoskeletal: Arthralgias (left shoulder pain, right leg pain). absent: Back Pain, Neck Pain Skin: absent: Rash, Pruritis Neurological: Headache, Dizziness Psychiatric: absent: Anxiety, Depression Physical Exam Vital Signs Reviewed: Yes Vital Signs Temp Pulse Resp BP Pulse Ox 01/30/18 14:57 98.7 F 89 16 153/93 H 97 Temperature: Afebrile Blood Pressure: Hypertensive Pulse: Regular Respiratory Rate: Normal Appearance: Positive for: Well-Appearing, Non-Toxic, Comfortable Pain Distress: None Mental Status: Positive for: Alert and Oriented X 3 - Systems Exam Head: Present: Atraumatic Pupils: Present: PERRL Extroacular Muscles: Present: EOMI Mouth: Present: Moist Mucous Membranes Neck: Present: Normal Range of Motion. No: MIDLINE TENDERNESS, Paraspinal Tenderness Respiratory/Chest: Present: Clear to Auscultation, Good Air Exchange. No: Respiratory Distress, Accessory Muscle Use Cardiovascular: Present: Regular Rate and Rhythm, Normal S1, S2. No: Murmurs Abdomen: No: Tenderness, Distention, Rebound, Guarding Back: Present: Normal Inspection. No: Midline Tenderness, Paraspinal Tenderness Upper Extremity: Present: Normal ROM, Tenderness (+ ttp over left shoulder) Lower Extremity: Present: Normal ROM, Tenderness (+ ttp over right knee. ), Neurovascularly Intact, Other (ambulates with crutches). No: Swelling, Erythema Neurological: Present: GCS=15, Speech Normal Skin: Present: Warm, Dry, Normal Color. No: Rashes Psychiatric: Present: Alert, Oriented x 3 Medical Decision Making ED Course and Treatment: pt is non toxic well appearing no distress. c/o 2 syncopal episodes, left shoulder pain, chest pain and right leg pain s/p fall 2 days ago. cbc; wnl cmp; wnl UA; + leukocytes, + trichomonasis. cxr; wnl xray of left shoulder; ? ac separation I advised the patient of my concern for before meals separation of the left shoulder. CAT scan of the head:FINDINGS: HEMORRHAGE: No intracranial hemorrhage. BRAIN: No mass effect or edema. No atrophy or chronic microvascular ischemic changes. VENTRICLES: Unremarkable. No hydrocephalus. CALVARIUM: Unremarkable. PARANASAL SINUSES: Chronic opacification of the bilateral maxillary sinuses identified. Acute left sphenoid sinusitis noted. MASTOID AIR CELLS: Unremarkable as visualized. No inflammatory changes. OTHER FINDINGS: None. IMPRESSION: Normal CT of the Head. Incidental acute left sphenoid sinusitis. Chronic complete opacification of bilateral maxillary sinuses noted as well. 01/30/18 21:30 pt eloped from ER with concern for IV in place. David LIN was contacted. pt returned to the ER; Iv has previously been removed; AMA from signed. Patient does not want to remain in the hospital. Patient does not want any further treatment. Patient wants to leave. Patient has been advised to not leave the emergency room but has decided to go AGAINST MEDICAL ADVICE. The patient possesses capacity to make decisions and has voiced understanding to all my warnings of potential worsening of the condition for which medical care was sought. I have discussed all known and potential risks and consequences to the patient leaving AGAINST MEDICAL ADVICE. Patient is leaving against medical advise. AMA form signed. witness by YISSEL Bautista. impression: syncope, AC separation, trichomonasis, AMA I called the patient and left message to call back regarding lab results. pt with + trichomonas; will need flagyl 2g. - Lab Interpretations Lab Results: Lab Results 01/30/18 16:30: Urine Opiates Screen Negative, Urine Methadone Screen Negative, Ur Barbiturates Screen Negative, Ur Phencyclidine Scrn Negative, Ur Amphetamines Screen Negative, U Benzodiazepines Scrn Positive H, U Oth Cocaine Metabols Negative, U Cannabinoids Screen Negative 01/30/18 16:30: Urine Color Yellow, Urine Appearance Slight-cloudy, Urine pH 6.0, Ur Specific [place] >= 1.030, Urine Protein 30 H, Urine Glucose (UA) Negative, Urine Ketones Negative, Urine Blood Small H, Urine Nitrate Negative, Urine Bilirubin Negative, Urine Urobilinogen 1.0 H, Ur Leukocyte Esterase Small H, Urine RBC 0 - 2, Urine WBC 1 - 3, Ur Epithelial Cells 6 - 8, Urine Bacteria Few, Urine Other Trichomonas - RAD Interpretation Radiology Orders: 01/30/18 15:53 HEAD W/O CONTRAST [CT] Stat 01/30/18 15:54 SHOULDER LEFT [RAD] Stat 01/30/18 19:02 CHEST PORTABLE [RAD] Stat - Medication Orders Current Medication Orders: Discontinued Medications Sodium Chloride (Sodium Chloride 0.9%) 1,000 mls @ 999 mls/hr IV .Q1H1M STA Stop: 01/30/18 16:54 Last Admin: 01/30/18 19:19 Dose: 999 mls/hr eMAR Start Stop Document 01/30/18 19:19 GMD (Rec: 01/30/18 19:19 GMD [id number]) Intravenous Solution Start Date 01/30/18 Start Time 19:19 End Date 01/30/18 End time 20:20 Total Infusion Time 61 Ketorolac Tromethamine (Toradol) 30 mg IVP STAT STA Stop: 01/30/18 19:02 Last Admin: 01/30/18 19:18 Dose: 30 mg MAR Pain Assessment Document 01/30/18 19:18 GMD (Rec: 01/30/18 19:19 GMD [id number]) Pain Reassessment Is this a pain reassessment? No IVP Administration Document 01/30/18 19:18 GMD (Rec: 01/30/18 19:19 GMD [id number]) Charges for Administration # of IVP Administrations 1 Disposition/Present on Arrival - Present on Arrival Any Indicators Present on Arrival: No History of DVT/PE: No History of Uncontrolled Diabetes: No Urinary Catheter: No History of Decub. Ulcer: No History Surgical Site Infection Following: Orthopedic Procedures - Disposition Have Diagnosis and Disposition been Completed?: Yes Diagnosis: Shoulder pain, Syncope, Knee pain, Chest pain, Trichomonas infection Disposition: AGAINST MEDICAL ADVICE Disposition Time: 21:30 Patient Plan: Other (AMA) Condition: UNKNOWN Discharge Instructions (ExitCare): Chest Pain (ED), Syncope (ED) Forms: [facility] ([place])
[2018-01-30 22:03] LABS: BASO # 0.02 K/mm3 (0.0-2.0); BASO % 0.3 % (0.0-3.0); EOS # 0.2 (0.0-0.7); EOS % 2.9 % (1.5-5.0); GRAN # 3.32 (1.4-6.5); GRAN % 54.1 % (50.0-68.0); HEMOGLOBIN 10.9 g/dL (12.0-16.0); LYMPH # 2.3 (1.2-3.4); LYMPH % 36.8 % (22.0-35.0); MEAN CELL VOLUME 92.4 fl (80.0-105.0); MEAN CORPUSCULAR HEMOGLOBIN 29.7 pg (25.0-35.0); MEAN CORPUSCULAR HGB CONC 32.2 g/dl (31.0-37.0); MEAN PLATELET VOLUME 9.3 fl (7.0-11.0); MONO # 0.4 (0.1-0.6); MONO % 5.9 % (1.0-6.0); RBC 3.67 10^6/uL (3.5-6.1); WHITE BLOOD COUNT 6.1 10^3/ul (4.5-11.0)
[2018-01-30 22:12] LABS: ALB/GLOB RATIO 1.2 (1.1-1.8); ALBUMIN 3.5 g/dL (3.0-4.8); AST/SGOT 17 U/L (14-36); BLOOD UREA NITROGEN 6 mg/dL (7-21); CALCIUM 8.4 mg/dL (8.4-10.5); GFR NON-AFRICAN AMERICAN > 60
[2018-01-30 22:13] LABS: ALT/SGPT 23 U/L (7-56); TROPONIN I < 0.01 ng/mL
--- NOTE | 2018-01-31 09:39 | RAD ---
Date of service: 01/30/2018 HISTORY: syncope COMPARISON: No prior. FINDINGS: LUNGS: No active pulmonary disease. PLEURA: No significant pleural effusion identified, no pneumothorax apparent. CARDIOVASCULAR: Normal. OSSEOUS STRUCTURES: No significant abnormalities. VISUALIZED UPPER ABDOMEN: Normal. OTHER FINDINGS: None. IMPRESSION: No active disease.
--- NOTE | 2018-01-31 10:20 | RAD ---
Date of service: 01/30/2018 PROCEDURE: Radiographs of the Left Shoulder HISTORY: fall, shoulder pain COMPARISON: 03/17/2017 FINDINGS: BONES: Normal. No fracture. JOINTS: There is wide 2 cm separation of the acromioclavicular joint. This is unchanged SOFT TISSUES: Normal. OTHER FINDINGS: None. IMPRESSION: There is wide 2 cm separation of the acromioclavicular joint. This is unchanged
--- NOTE | 2018-01-31 14:11 | CARD ---
APPROVED REPORT Date of service: 01/30/2018 EKG Measurement Heart [id number] <Conclusion> Normal sinus rhythm Normal ECG
== END 2018-01-30 21:30 | disposition left against medical advice (07) ==
LOC: ED 14:32
DX: M25.512 Pain in left shoulder (principal); R07.9 Chest pain, unspecified; R55 Syncope and collapse; M25.561 Pain in right knee; A59.9 Trichomoniasis, unspecified
CPT/HCPCS: 70450; 71045; 73030; 80053; 80324; 80345; 80346; 80349; 80353; 80358; 80361; 81001; 82550; 83615; 83992; 84484; 85025; 87086; 93005; 96361; 96374; 99282; J1885; J7030

== ENCOUNTER 2018-01-30 22:08 | Emergency (ER) | payer MEDICAID ==
[2018-01-30 22:08] VITALS: BMI 41.3
== END 2018-01-30 23:46 | disposition left against medical advice (07) ==
LOC: ED 22:08
DX: Z02.89 Encounter for other administrative examinations (principal); R52 Pain, unspecified

== ENCOUNTER 2018-02-05 16:31 | Emergency (ER) | payer OTHER, MEDICAID ==
[2018-02-05 17:02] VITALS: RESP 18; O2SAT 100; BMI 24.4
[2018-02-05] MEDS ORDERED: cefTRIAXone (Rocephin) 250 mg Inj IM STA (17:35)
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
[2018-02-05 18:53] LABS: BASO # 0.02 K/mm3 (0.0-2.0); BASO % 0.3 % (0.0-3.0); EOS % 0.1 % (1.5-5.0); GRAN # 6.82 (1.4-6.5); GRAN % 87.6 % (50.0-68.0); HEMOGLOBIN 12.2 g/dL (12.0-16.0); LYMPH # 0.9 (1.2-3.4); MEAN CELL VOLUME 91.3 fl (80.0-105.0); MEAN CORPUSCULAR HEMOGLOBIN 29.6 pg (25.0-35.0); MEAN CORPUSCULAR HGB CONC 32.4 g/dl (31.0-37.0); MEAN PLATELET VOLUME 9.8 fl (7.0-11.0); MONO # 0.1 (0.1-0.6); RBC 4.12 10^6/uL (3.5-6.1); RED CELL DISTRIBUTION WIDTH 13.6 % (11.5-14.5); WHITE BLOOD COUNT 7.8 10^3/ul (4.5-11.0)
[2018-02-05 19:04] LABS: ALB/GLOB RATIO 1.1 (1.1-1.8); ALBUMIN 4.2 g/dL (3.0-4.8); ALT/SGPT 14 U/L (7-56); AST/SGOT 29 U/L (14-36); BLOOD UREA NITROGEN 8 mg/dL (7-21); CALCIUM 9.1 mg/dL (8.4-10.5); GFR NON-AFRICAN AMERICAN > 60
--- NOTE | 2018-02-05 19:13 | ED PDOC ---
Physical Exam Vital Signs Temp Pulse Resp BP Pulse Ox 02/05/18 16:55 98.2 F 102 H 18 156/105 H 100 Medical Decision Making ED Course and Treatment: 02/05/18 20:09 - Lab Interpretations Lab Results: 02/05/18 18:48 02/05/18 18:48 Lab Results 02/05/18 18:48: Sodium 139, Potassium 4.2, Chloride 105, Carbon Dioxide 24, Anion Gap 15, BUN 8, Creatinine 0.7, Est GFR ( Amer) > 60, Est GFR (Non- Af Amer) > 60, Random Glucose 127 H, Calcium 9.1, Total Bilirubin 0.2, AST 29, ALT 14, Alkaline Phosphatase 91, Total Protein 8.2, Albumin 4.2, Globulin 4.0, Albumin/Globulin Ratio 1.1 02/05/18 18:48: Blood Type Pending, Antibody Screen Pending, BBK History Checked Patient has bt 02/05/18 18:48: WBC 7.8 D, RBC 4.12, Hgb 12.2, Hct 37.6, MCV 91.3, MCH 29.6, MCHC 32.4, RDW 13.6, Plt Count 416, MPV 9.8, Gran % 87.6 H, Lymph % (Auto) 11.0 L, [place] % (Auto) 1.0, Eos % (Auto) 0.1 L, Baso % (Auto) 0.3, Gran # 6.82 H, Lymph # (Auto) 0.9 L, [place] # (Auto) 0.1, Eos # (Auto) 0.0, Baso # (Auto) 0.02 - RAD Interpretation Radiology Orders: 02/05/18 17:35 CERVICAL SPINE W/O CONTRAST [CT] Stat HEAD W/O CONTRAST [CT] Stat CHEST TWO VIEWS (PA/LAT) [RAD] Stat KNEE RIGHT 2 VIEWS (AP & LAT) [RAD] Stat - Medication Orders Current Medication Orders: Discontinued Medications Acetaminophen (Tylenol 325mg Tab) 325 mg PO STAT STA Stop: 02/05/18 17:40 Azithromycin (Zithromax) 1,000 mg PO STAT STA; Protocol Stop: 02/05/18 17:36 Last Admin: 02/05/18 18:38 Dose: 1,000 mg Ceftriaxone Sodium (Rocephin) 250 mg IM STAT STA; Protocol Stop: 02/05/18 17:36 Last Admin: 02/05/18 18:38 Dose: 250 mg IM Administration Charges Document 02/05/18 18:38 [facility] (Rec: 02/05/18 18:39 [facility] [id number]) Injection Site MAR Injection Site Left Deltoid Charges for Administration # of IM Administrations 1 Metronidazole (Flagyl) 2,000 mg PO STAT STA; Protocol Stop: 02/05/18 17:35 Last Admin: 02/05/18 18:38 Dose: 2,000 mg - Scribe Statement The provider has reviewed the documentation as recorded by the Scribe Cory Peterson Provider Scribe Attestation: All medical record entries made by the Scribe were at my direction and personally dictated by me. I have reviewed the chart and agree that the record accurately reflects my personal performance of the history, physical exam, medical decision making, and the department course for this patient. I have also personally directed, reviewed, and agree with the discharge instructions and disposition. Disposition/Present on Arrival - Present on Arrival History of DVT/PE: No History of Uncontrolled Diabetes: No Urinary Catheter: No History of Decub. Ulcer: No History Surgical Site Infection Following: Orthopedic Procedures - Disposition Referrals: Yvette Prakash MD [Primary Care Provider] - Follow up with primary Forms: [employer] ([place])
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
[2018-02-05 20:20] VITALS: PULSE 80; TEMP 98
[2018-02-06 04:03] VITALS: BP 140/80
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
== END 2018-02-05 20:42 | disposition home or self-care (01) ==
LOC: ED 16:31
DX: M25.512 Pain in left shoulder (principal); V43.62XA Car passenger injured in collision with other type car in traffic accident, initial encounter; Y92.410 Unspecified street and highway as the place of occurrence of the external cause
CPT/HCPCS: 70450; 71046; 72125; 73560; 80053; 84702; 85025; 86850; 86900; 96372; 96374; 99285; J0696; J1885

== ENCOUNTER 2018-09-14 18:20 | Observation (INO) | payer MEDICAID, OTHER ==
[2018-09-14 18:38] VITALS: BMI 25.2
[2018-09-14 18:48] VITALS: RESP 18
[2018-09-14] MEDS ORDERED: Sodium Chloride 0.9% 1,000 ML IV STA (19:00)
--- NOTE | 2018-09-14 19:07 | ED PDOC ---
Arrival/HPI - General Historian: Patient, Spouse - History of Present Illness Narrative History of Present Illness (Text): 09/14/18 19:01 32yr old female with chronic back pain radiating into the right leg. pt with fevers x 3 days. c/o 3 day history of bilateral leg swelling. no recent trauma or injury. pt denies abdominal pain. no n/v/d/c. c/o dizziness. + fatigue. c/o severe back pain to the entire back. no chest pain. no shortness of breath. no recent travel. no urinary symptoms. <Jany Bang - Last Filed: 09/15/18 00:11> <Alfredo Polk - Last Filed: 09/15/18 06:37> - General Chief Complaint: Fever Time Seen by Provider: 09/14/18 18:22 Past Medical History - Provider Review Nursing Documentation Reviewed: Yes - Travel History Have you recently traveled outside [place] w/in the past 3 mons?: No - Infectious Disease Hx of Infectious Diseases: None - Cardiac Hx Cardiac Disorders: No - Pulmonary Hx Respiratory Disorders: No - Neurological Hx Neurological Disorder: No - HEENT Hx HEENT Disorder: No - Renal Hx Renal Disorder: No - Endocrine/Metabolic Hx Endocrine Disorders: No - Hematological/Oncological Hx Blood Disorders: Yes Hx Anemia: Yes Hx Sickle Cell Disease: No - Integumentary Hx Dermatological Disorder: Yes Hx Cellulitis: Yes - Musculoskeletal/Rheumatological Hx Musculoskeletal Disorders: Yes Hx Back Pain: Yes Hx Fractures: Yes (left shoulder) - Gastrointestinal Hx Crohn's Disease: No Hx Diverticulitis: No Hx Gall Bladder Disease: No Hx Gastrointestinal Ulcer: No Hx Pancreatitis: No - Genitourinary/Gynecological Hx Sexually Transmitted Diseases: No - Psychiatric Hx Psychophysiologic Disorder: Yes Hx Anxiety: Yes Hx Substance Use: No - Surgical History Hx Orthopedic Surgery: Yes (L SHOULDER) - Anesthesia Hx Anesthesia: Yes Hx Anesthesia Reactions: No - Suicidal Assessment Feels Threatened In Home Enviroment: No <Jany Bang - Last Filed: 09/15/18 00:11> Family/Social History - Physician Review Nursing Documentation Reviewed: Yes Family/Social History: Unknown Family HX Smoking Status: Never Smoked Hx Alcohol Use: No Hx Substance Use: No <Jany Bang - Last Filed: 09/15/18 00:11> Allergies/Home Meds <Jany Bang - Last Filed: 09/15/18 00:11> <Alfredo Polk - Last Filed: 09/15/18 06:37> Allergies/Adverse Reactions: Allergies acetaminophen [From Tylenol] Adverse Reaction (Verified 09/14/18 18:38) ITCHING Home Medications: Home Meds Medication Instructions Recorded Confirmed No Known Home Med 01/30/18 09/14/18 Review of Systems - Review of Systems Constitutional: Fatigue, Fevers ENT: absent: Sinus Congestion Respiratory: Cough. absent: SOB Cardiovascular: absent: Chest Pain, Palpitations Gastrointestinal: absent: Abdominal Pain, Constipation, Diarrhea, Nausea, Vomiting Genitourinary Female: absent: Dysuria, Frequency, Hematuria Musculoskeletal: Arthralgias, Back Pain Skin: absent: Rash, Pruritis Neurological: Headache, Dizziness Psychiatric: absent: Anxiety, Depression, Suicidal Ideation <Jany Bang - Last Filed: 09/15/18 00:11> Physical Exam Vital Signs Reviewed: Yes Vital Signs Temp Pulse Resp BP Pulse Ox 09/14/18 18:41 99.1 F 92 H 18 152/90 H 100 Blood Pressure: Hypertensive Pulse: Tachycardic Respiratory Rate: Normal Appearance: Positive for: Well-Appearing Pain Distress: Moderate Mental Status: Positive for: Lethargic - Systems Exam Head: Present: Atraumatic Pupils: Present: PERRL Extroacular Muscles: Present: EOMI Conjunctiva: Present: Normal Ears: Present: Normal, NORMAL TM Mouth: Present: Moist Mucous Membranes. No: Drooling, Trismus Pharnyx: Present: Normal. No: ERYTHEMA, EXUDATE, TONSILS ENLARGED, Peritonsilar Swelling, Uvular Deviation, Muffled/Hoarse Voice Nose (External): Present: Atraumatic Nose (Internal): Present: Normal Inspection Neck: Present: Normal Range of Motion, Trachea Midline. No: Lymphadenopathy Respiratory/Chest: Present: Clear to Auscultation, Good Air Exchange. No: Respiratory Distress, Accessory Muscle Use Cardiovascular: Present: Regular Rate and Rhythm, Normal S1, S2. No: Murmurs Abdomen: No: Tenderness, Distention, Peritoneal Signs, Rebound, Guarding Back: Present: Normal Inspection, Midline Tenderness (+ midline tenderness from neck to buttock.), Paraspinal Tenderness, Pain with Leg Raise, Other (diffuse tenderness to entire back) Upper Extremity: Present: Normal Inspection, Normal ROM Lower Extremity: Present: Normal Inspection, CALF TENDERNESS, NORMAL PULSES, Tenderness, Swelling (+ 2+ pitting edema bilateral lower legs at ankles. + diffuse tenderness to both legs.), Neurovascularly Intact, Capillary Refill < 2 s. No: Normal ROM, Erythema Neurological: Present: GCS=15, Speech Normal Skin: Present: Warm, Dry, Normal Color. No: Rashes Psychiatric: Present: Alert, Oriented x 3 <Jany Bang - Last Filed: 09/15/18 00:11> Vital Signs Temp Pulse Resp BP Pulse Ox 09/14/18 18:41 99.1 F 92 H 18 152/90 H 100 <Alfredo Polk - Last Filed: 09/15/18 06:37> Medical Decision Making ED Course and Treatment: 09/14/18 19:56 32yr old female with fever and diffuse back and leg pain with lower leg edema. 09/14/18 22:04 wbc; 12.4 cmp; wnl trop; wnl bnp; wnl ua; + blood UDS; + benzos cxr; wnl CT chest/abd/pelvis: FINDINGS: CHEST: THYROID: A 1.2 cm hypodense lesion is seen in the posterior left thyroid lobe. Consideration could be given to correlation with thyroid ultrasound evaluation. LUNGS: No pulmonary mass. The lungs appear essentially clear. PLEURAL SPACES: No pneumothorax evident. No pleural effusions. HEART: No cardiomegaly. No pericardial effusion. MEDIASTINUM: A pyramidal-shaped soft tissue density is seen in the superior anterior mediastinum compatible with residual thymic tissue; a normal variant finding. LYMPH NODES: No lymphadenopathy is evident. ABDOMEN AND PELVIS: LIVER: Unremarkable. No focal lesions. GALLBLADDER AND BILE DUCTS: The gallbladder appears within normal limits. No radioopaque gallstones are seen. No biliary ductal dilatation is evident. PANCREAS: Unremarkable. SPLEEN: Unremarkable. ADRENAL GLANDS: Unremarkable. KIDNEYS, URETERS, AND BLADDER: Unremarkable. No hydronephrosis or nephrolithiasis. No uterteral or bladder calculi. The urinary bladder is normal in size and configuration. Subtle perivesical stranding is noted compatible with acute cystitis. STOMACH AND BOWEL: Unremarkable appearance of the stomach and bowel. No evidence of bowel obstruction. No evidence suggesting enteritis or colitis. APPENDIX: No evidence of acute appendicitis on CT examination. PERITONEUM: No free fluid. No free air. A small right inguinal hernia is noted which contains fat. Additionally, the herniated fat is hazy suggestive of panniculitis. LYMPH NODES: No lymphadenopathy is evident. VASCULATURE: No evidence of abdominal aortic aneurysm. BONES: No acute osseous abnormality. IMPRESSION: No acute intra-thoracic abnormality. Incidental discovery of residual thymic tissue in the anterior mediastinum; a normal variant finding. 1.2 cm hypodense lesion in the lateral posterior left thyroid lobe. Consideration could be given to correlation with thyroid ultrasound evaluation for further characterization. Evidence of acute cystitis. Small right inguinal hernia containing hazy fat may represent panniculitis. Electronically signed on September 14, 2018 9:51:56 PM EDT by: Farhan Snow M.D., M.B.A., Certified By [employer] Trained MRI and CT Specialist pt seen and evaluated by dr. polk. pt given toradol for pain. pt remains with limited rom of legs; severe back pain. No narcotics given as patient is extremely drowsy due to benzo use. denies drug use. case discussed with dr. cheema; will admit obs for intractable back pain, leukocytosis. impression; intractable back pain, leukocytosis, leg swelling admit obs med/surg Reassessment Condition: Re-examined, Unchanged - RAD Interpretation Radiology Orders: 09/14/18 18:57 CHEST PORTABLE [RAD] Stat - Medication Orders Current Medication Orders: Sodium Chloride (Sodium Chloride 0.9%) 1,000 mls @ 999 mls/hr IV .Q1H1M STA Stop: 09/14/18 20:00 <Jany Bang T - Last Filed: 09/15/18 00:11> - Lab Interpretations Lab Results: Urine Color Light yellow (YELLOW) 09/14/18 19:15 Urine Appearance Clear (CLEAR) 09/14/18 19:15 Urine pH 8.0 (4.7-8.0) 09/14/18 19:15 Ur Specific [place] 1.010 (1.005-1.035) 09/14/18 19:15 Urine Protein Negative mg/dL (<30 mg/dL) 09/14/18 19:15 Urine Glucose (UA) Negative mg/dL (NEGATIVE) 09/14/18 19:15 Urine Ketones Negative mg/dL (NEGATIVE) 09/14/18 19:15 Urine Blood Trace-lysed (NEGATIVE) H 09/14/18 19:15 Urine Nitrate Negative (NEGATIVE) 09/14/18 19:15 Urine Bilirubin Negative (NEGATIVE) 09/14/18 19:15 Urine Urobilinogen 0.2 E.U./dL (<1 E.U./dL) 09/14/18 19:15 Ur Leukocyte Esterase Negative [place] Alberto/uL (NEGATIVE) 09/14/18 19:15 Urine RBC 0 - 2 /hpf (0-2) 09/14/18 19:15 Urine WBC 0 - 2 /hpf (0-6) 09/14/18 19:15 Ur Epithelial Cells 0 - 2 /hpf (0-5) 09/14/18 19:15 Urine Bacteria Few /hpf (NONE) 09/14/18 19:15 - RAD Interpretation Radiology Orders: 09/14/18 18:57 CHEST PORTABLE [RAD] Stat - Medication Orders Current Medication Orders: Discontinued Medications Sodium Chloride (Sodium Chloride 0.9%) 1,000 mls @ 999 mls/hr IV .Q1H1M STA Stop: 09/14/18 20:00 Last Admin: 09/14/18 19:45 Dose: 999 mls/hr eMAR Start Stop Document 09/14/18 19:45 CNR (Rec: 09/14/18 19:46 CNR [place] [id number]) Intravenous Solution Start Date 09/14/18 Start Time 19:46 End Date 09/14/18 End time 20:46 Total Infusion Time 60 Ketorolac Tromethamine (Toradol) 30 mg IVP STAT STA Stop: 09/14/18 19:56 Last Admin: 09/14/18 20:03 Dose: 30 mg MAR Pain Assessment Document 09/14/18 20:03 CNR (Rec: 09/14/18 20:03 CNR [place] [id number]) Pain Reassessment Is this a pain reassessment? Yes Sleep Is patient sleeping during reassessment? No Location Pain Location Body Site Generalized Description Description Constant IVP Administration Document 09/14/18 20:03 CNR (Rec: 09/14/18 20:03 [facility]NR [facility] Charges for Administration # of IVP Administrations 1 <Alfredo Polk - Last Filed: 09/15/18 06:37> - PA / MEDICAID ANALYST / Resident Statement / has reviewed & agrees with the documentation as recorded. / has examined the patient and agrees with the treatment plan. <Alfredo Polk - Last Filed: 09/15/18 06:37> Disposition/Present on Arrival - Present on Arrival Any Indicators Present on Arrival: No History of DVT/PE: No History of Uncontrolled Diabetes: No Urinary Catheter: No History of Decub. Ulcer: No History Surgical Site Infection Following: Orthopedic Procedures - Disposition Have Diagnosis and Disposition been Completed?: Yes Disposition Time: 22:25 Patient Plan: Discharge, Observation <Jany Bang - Last Filed: 09/15/18 00:11> <Alfredo Polk - Last Filed: 09/15/18 06:37> - Disposition Diagnosis: Intractable back pain, Leukocytosis Disposition: HOSPITALIZED Condition: FAIR
[2018-09-14 19:33] LABS: URINE BILIRUBIN NEGATIVE (NEGATIVE); URINE BLOOD TRACE-LYSED (NEGATIVE); URINE GLUCOSE (UA) NEGATIVE (NEGATIVE); URINE LEUKOCYTE ESTERASE NEGATIVE Leu/uL (NEGATIVE); URINE PROTEIN NEGATIVE mg/dL (<30 mg/dL); URINE UROBILINOGEN 0.2 E.U./dL (<1 E.U./dL)
[2018-09-14 19:34] LABS: URINE APPEARANCE CLEAR (CLEAR); URINE COLOR LIGHT YELLOW (YELLOW)
[2018-09-14 19:55] LABS: OPIATES, UR NEGATIVE (NEGATIVE)
[2018-09-14 20:09] LABS: BASO # 0.03 K/mm3 (0.0-2.0); BASO % 0.2 % (0.0-3.0); EOS # 0.2 (0.0-0.7); EOS % 1.7 % (1.5-5.0); HEMOGLOBIN 10.8 g/dL (12.0-16.0); MEAN CELL VOLUME 91.9 fl (80.0-105.0); MEAN CORPUSCULAR HGB CONC 31.6 g/dl (31.0-37.0); MEAN PLATELET VOLUME 10.2 fl (7.0-11.0); MONO # 0.8 (0.1-0.6); MONO % 6.1 % (1.0-6.0); RBC 3.72 10^6/uL (3.5-6.1); RED CELL DISTRIBUTION WIDTH 14.3 % (11.5-14.5); WHITE BLOOD COUNT 12.4 10^3/uL (4.5-11.0)
[2018-09-14 20:10] LABS: URINE BACTERIA FEW /hpf; URINE EPITHELIAL CELLS 0 - 2 /hpf (0-5); URINE RBC 0 - 2 /hpf (0-2); URINE WBC 0 - 2 /hpf (0-6)
[2018-09-14 20:21] LABS: BARBITURATES, UR NEGATIVE (NEGATIVE); BENZODIAZEPINES, UR POSITIVE (NEGATIVE); PHENCYCLIDINE, UR NEGATIVE (NEGATIVE)
[2018-09-14 20:51] LABS: ALB/GLOB RATIO 1.1 (1.1-1.8); ALBUMIN 3.7 g/dL (3.0-4.8); ALT/SGPT 18 U/L (7-56); AST/SGOT 23 U/L (14-36); BLOOD UREA NITROGEN 5 mg/dL (7-21); CALCIUM 8.6 mg/dL (8.4-10.5); GFR NON-AFRICAN AMERICAN > 60
[2018-09-14] MEDS ORDERED: Iohexol 350 MG/100 ML VIAL ONE (20:57)
[2018-09-14 21:03] LABS: B-TYPE NATRIURETIC PEPTIDE 103 pg/mL (0-450); TROPONIN I < 0.01 ng/mL
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
[2018-09-14] MEDS ORDERED: oxyCODONE 10 mg Immediate Release Tab PO PRN ×2 (23:05→23:21)
[2018-09-15 03:18] VITALS: O2SAT 99
[2018-09-15 07:07] LABS: ALBUMIN 3.1 g/dL (3.0-4.8); ALT/SGPT 17 U/L (7-56); AST/SGOT 26 U/L (14-36); BLOOD UREA NITROGEN 5 mg/dL (7-21); GFR NON-AFRICAN AMERICAN > 60
[2018-09-15 07:08] LABS: HEMOGLOBIN 9.8 g/dL (12.0-16.0); MEAN CELL VOLUME 91.5 fl (80.0-105.0); MEAN CORPUSCULAR HEMOGLOBIN 28.7 pg (25.0-35.0); MEAN CORPUSCULAR HGB CONC 31.3 g/dl (31.0-37.0); MEAN PLATELET VOLUME 9.4 fl (7.0-11.0); RBC 3.42 10^6/uL (3.5-6.1); RED CELL DISTRIBUTION WIDTH 14.3 % (11.5-14.5); WHITE BLOOD COUNT 9.3 10^3/uL (4.5-11.0)
[2018-09-15] MEDS ORDERED: Potassium Chloride 20 mEq ER Tab PO STA (07:31)
[2018-09-15 08:06] VITALS: BP 111/70; PULSE 68; TEMP 97.8
--- NOTE | 2018-09-15 10:07 | RAD ---
Date of service: 09/14/2018 HISTORY: fever COMPARISON: 02/05/2018 TECHNIQUE: 1 view obtained. FINDINGS: LUNGS: No active pulmonary disease. PLEURA: No significant pleural effusion identified, no pneumothorax apparent. CARDIOVASCULAR: No aortic atherosclerotic calcification present. Normal cardiac size. No pulmonary vascular congestion. OSSEOUS STRUCTURES: No significant abnormalities. VISUALIZED UPPER ABDOMEN: Normal. OTHER FINDINGS: None. IMPRESSION: No active disease.
--- NOTE | 2018-09-15 11:03 | US ---
HISTORY: Leg pain and swelling. Evaluate for DVT PHYSICIAN(S): Fly Mcguire MD. TECHNIQUE: Duplex sonography and color-flow Doppler with graded compression were used to evaluate the deep venous systems of both lower extremities. FINDINGS: The visualized deep venous systems of both lower extremities are sonographically normal and compressible. Normal wave forms and augmentation are seen. There is no sonographic evidence for deep venous thrombosis in the visualized segments of both lower extremities. IMPRESSION: No sonographic evidence for deep venous thrombosis in the visualized segments of both lower extremities.
--- NOTE | 2018-09-15 11:20 | CT ---
Date of service: 2018-09-14 21:04:39 CT chest, abdomen, and pelvis with IV contrast Indication: upper and lower back pain/fever Technique: Contiguous axial images of the chest, abdomen, and pelvis. Coronal and Sagittal reformats generated and reviewed. This CT exam was performed using 1 or more of the following dose reduction techniques: Automated exposure control, adjustment of the MAA and/or kV according to patient size, and/or use of iterative reconstruction technique. Contrast: 100 mL Omnipaque 350 IV Radiation dose: Total exam DLP = 1297.34 MGy-cm. Comparison: None available Findings: Visualized portions of the inferior thyroid gland demonstrates 10 mm hypodense left lower pole nodule. Subtle triangular soft tissue within the anterior mediastinum likely residual thymic tissue. The mediastinal and hilar vascular structures appear within normal limits. The heart appears within normal limits of size. No focal consolidation. No pleural effusion. No pneumothorax. No suspicious pulmonary nodules measuring greater than 5 mm. Hepatomegaly. The spleen, kidneys, pancreas, adrenal glands, and gallbladder appear unremarkable. The stomach is nondistended. The bowel loops appear within normal limits of caliber without evidence of intestinal obstruction. Diverticulosis without CT evidence of acute diverticulitis. There is no definite free air. The appendix appears within normal limits of caliber. No secondary signs of acute appendicitis. Uterus is present. Mild urinary bladder wall thickening with associated inflammatory changes along the anterior aspect. Small right fat containing inguinal hernia. Mild degenerative changes of the spine. Impression: 10 mm hypodense left lower pole thyroid nodule. Subtle triangular soft tissue within the anterior mediastinum, likely residual thymic tissue. Hepatomegaly. Diverticulosis without CT evidence of acute diverticulitis. Mild urinary bladder wall thickening and associated inflammatory changes suspected to reflect cystitis. Recommend correlation with urinalysis. Small fat containing right inguinal hernia. Additional findings as above. Preliminary impression was provided by [facility].
--- NOTE | 2018-09-15 12:29 | CT ---
Date of service: 09/15/2018 PROCEDURE: CT Lumbar Spine without contrast HISTORY: back pain COMPARISON: None available. TECHNIQUE: Axial computed tomography images were obtained of the lumbar spine without the use of intravenous contrast. Coronal and sagittal reformatted images were created and reviewed. Radiation dose: Total exam DLP = 1157.42 mGy-cm. This CT exam was performed using one or more of the following dose reduction techniques: Automated exposure control, adjustment of the mA and/or kV according to patient size, and/or use of iterative reconstruction technique. FINDINGS: VERTEBRAE: Unremarkable. No fracture. Normal alignment. DISCS/SPINAL CANAL/NEURAL FORAMINA: L1-2: Unremarkable. L2-3: Unremarkable. L3-4: Moderate facet arthropathy with ligamentum flavum hypertrophy. Mild stenosis L4-5: Mild disc bulge. Facet arthropathy with ligamentum flavum hypertrophy. Moderate stenosis L5-S1: Unremarkable. PARASPINAL SOFT TISSUES: Unremarkable. OTHER FINDINGS: None. IMPRESSION: L3-4: Moderate facet arthropathy with ligamentum flavum hypertrophy. Mild stenosis L4-5: Mild disc bulge. Facet arthropathy with ligamentum flavum hypertrophy. Moderate stenosis No acute findings
--- NOTE | 2018-09-15 13:24 | RAD ---
Date of service: 09/15/2018 PROCEDURE: Right Foot Radiographs. HISTORY: pain in foot, r/o fx? COMPARISON: None. TECHNIQUE: 3 views obtained. FINDINGS: BONES: Normal. No fracture. JOINTS: There is a hallux valgus angulation with mild degenerative changes in the 1st MTP joint SOFT TISSUES: Normal. OTHER FINDINGS: None. IMPRESSION: There is a hallux valgus angulation with mild degenerative changes in the 1st MTP joint
--- NOTE | 2018-09-15 14:07 | NM ---
Date of service: 09/15/2018 COMPARISON: September 14, 2018. Portable chest. September 14, 2018. CT thorax September 15, 2018. Duplex venous sonography negative for DVT. TECHNIQUE: 32.1 mCi technetium 99-m DTPA aerosol. 3.8 mCI technetium 99-m MAA administered intravenously. FINDINGS: VENTILATION COMPONENT: Normal.Retention of radionuclide in the tracheobronchial tree and ingestion of radionuclide in the stomach, incidental findings PERFUSION COMPONENT: Heterogeneous distribution of radionuclide. No geographic, segmental, lobar abnormalities apparent on the present examination. IMPRESSION: Low probability ventilation perfusion scan for pulmonary embolism.
--- NOTE | 2018-09-15 16:05 | CT ---
Date of service: 09/15/2018 PROCEDURE: CT Cervical Spine without contrast HISTORY: ? history of fracture/ persistant pain COMPARISON: 02/05/2018 TECHNIQUE: Axial computed tomography images were obtained of the cervical spine without the use of intravenous contrast. Coronal and sagittal reformatted images were created and reviewed. Radiation dose: Total exam DLP = 766.91 mGy-cm. This CT exam was performed using one or more of the following dose reduction techniques: Automated exposure control, adjustment of the mA and/or kV according to patient size, and/or use of iterative reconstruction technique. FINDINGS: VERTEBRAE: No fracture. Normal alignment. No destructive bony lesion. DISCS/SPINAL CANAL/NEURAL FORAMINA: No significant central canal or neural foraminal stenosis. Discs heights are grossly preserved. PARASPINAL SOFT TISSUES: Unremarkable. OTHER FINDINGS: None. IMPRESSION: Unremarkable CT of the cervical spine.
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
[2018-09-15] MEDS ORDERED: Benzocaine/Menthol (Cepacol) Lozenge MT SCH (23:15)
--- NOTE | 2018-09-16 08:29 | RAD ---
Date of service: 09/15/2018 PROCEDURE: Pelvis and both hips HISTORY: history of fracture per patient COMPARISON: TECHNIQUE: Five views FINDINGS: There is no evidence of fracture. The anterior acetabular rim projects laterally in both hips. 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 There is also a CAM like deformity of the left femoral neck which is also associated with impingement. IMPRESSION: Findings associated with femoro acetabular impingement
== END 2018-09-15 18:10 | disposition left against medical advice (07) ==
LOC: ED 18:20 → ERH 22:21 → 3RNO 09-15
PROVIDERS: ADMIT Internal Medicine; ATTEND Hospitalist
DX: G89.29 Other chronic pain (principal); M54.9 Dorsalgia, unspecified; M79.604 Pain in right leg; Z76.5 Malingerer [conscious simulation]; N30.00 Acute cystitis without hematuria; E04.1 Nontoxic single thyroid nodule; F13.90 Sedative, hypnotic, or anxiolytic use, unspecified, uncomplicated; K40.90 Unilateral inguinal hernia, without obstruction or gangrene, not specified as recurrent; K57.90 Diverticulosis of intestine, part unspecified, without perforation or abscess without bleeding; M20.10 Hallux valgus (acquired), unspecified foot; M48.061 Spinal stenosis, lumbar region without neurogenic claudication; M79.7 Fibromyalgia; Z88.6 Allergy status to analgesic agent
CPT/HCPCS: 36415; 71045; 71260; 72125; 72131; 73522; 73630; 74177; 78582; 80053; 80320; 80324; 80345; 80346; 80349; 80353; 80358; 80361; 81001; 81025; 82550; 83615; 83735; 83880; 83992; 84484; 85025; 85027; 85378; 87040; 87070; 87430; 93970; 96360; 96374; 97162; 97530; 99285; G0378; G8978; G8979; J1885; J7030; Q9967